=== PATIENT | female | born 1985 ===

== ENCOUNTER 2017-02-11 18:42 | Emergency (ER) | payer MEDICAID ==
[2017-02-11 19:26] LABS: HEMATOCRIT 41.2 % (34.0-47.0); MEAN CELL VOLUME 100.3 fl (81.0-99.0); MEAN CORPUSCULAR HEMOGLOBIN 33.5 pg (27.0-31.0); MEAN CORPUSCULAR HGB CONC 33.4 g/dL (33.0-37.0); RED CELL DISTRIBUTION WIDTH 14.1 % (11.5-14.5); WHITE BLOOD COUNT 5.8 K/uL (4.8-10.8)
[2017-02-11 19:44] LABS: ALB/GLOB RATIO 1.5 (1.0-2.1); ALKALINE PHOSPHATASE 76 U/L (38-126); ALT/SGPT 51 U/L (9-52); AST/SGOT 63 U/L (14-36); BILIRUBIN,TOTAL 0.5 mg/dl (0.2-1.3); BLOOD UREA NITROGEN 10 mg/dl (7-17); CALCIUM 9.1 mg/dL (8.4-10.2); CARBON DIOXIDE 27 mmol/L (22-30); CHLORIDE 109 mmol/L (98-107); GFR AFRICAN-AMERICAN > 60; GLUCOSE,RANDOM 90 mg/dL (65-105); POTASSIUM 4.6 MMOL/L (3.6-5.0); SODIUM 149 mmol/l (132-148)
[2017-02-11 20:13] LABS: ALCOHOL SERUM 392 mg/dl (0-10)
--- NOTE | 2017-02-11 22:32 | ED PDOC ---
HPI: Psych/Substance Abuse Time Seen by Provider: 02/11/17 18:57 Chief Complaint (Nursing): Alcohol Ingestion Chief Complaint (Provider): Brought in by EMS for alcohol abuse History Per: Patient, EMS Current Symptoms Are (Timing): Still Present Past Medical History Reviewed: Historical Data, Nursing Documentation, Vital Signs - Medical History PMH: Bipolar Disorder, HIV (is HIV(+) and is not on medication), Schizophrenia Denies: Depression - Family History Family History: States: No Known Family Hx - Immunization History Hx Tetanus Toxoid Vaccination: No Hx Influenza Vaccination: No Hx Pneumococcal Vaccination: No - Home Medications Home Medications: Ambulatory Orders Medication Instructions Recorded Unobtainable 05/21/13 - Allergies Allergies/Adverse Reactions: Allergies Allergy/AdvReac Type Severity Reaction Status Date / Time shellfish derived Allergy RASH Verified 02/11/17 18:46 Sulfa (Sulfonamide Allergy RASH Verified 02/11/17 18:46 Antibiotics) Review of Systems ROS Statement: Except As Marked, All Systems Reviewed And Found Negative Physical Exam - Reviewed Nursing Documentation Reviewed: Yes Vital Signs Reviewed: Yes - Physical Exam Appears: Positive for: Well, Non-toxic, No Acute Distress Head Exam: Positive for: ATRAUMATIC, NORMAL INSPECTION, NORMOCEPHALIC Skin: Positive for: Warm. Negative for: Normal Color (Linear scars left forearm ) Eye Exam: Positive for: Normal appearance ENT: Positive for: Normal ENT Inspection Neck: Positive for: Normal, Painless ROM Cardiovascular/Chest: Positive for: Regular Rate, Rhythm Respiratory: Positive for: Normal Breath Sounds. Negative for: Accessory Muscle Use Gastrointestinal/Abdominal: Positive for: Normal Exam, Bowel Sounds, Soft Back: Positive for: Normal Inspection Extremity: Positive for: Normal ROM Neurologic/Psych: Positive for: Alert. Negative for: Gait (Unsteady ) - Laboratory Results Result Diagrams: 02/11/17 19:22 02/11/17 19:22 Medical Decision Making Medical Decision Makin - Pt alert x 3, steady gait. Pt tolerated sandwich in ER. Pt states she has history of bipolar and does not take medication. Pt states she was on depakote once but she didn't like the way she felt on it. Pt states she does not like where she lives and is always anxious about the people who live in her building. Pt states she drinks because she doesn't like where she lives. Pt states she does not want to speak to psychiatrist. Pt denies SI/HI. Pt given several resources to make out-patient appointment. Pt presents with boyfriend. Disposition - Clinical Impression Clinical Impression: Alcohol abuse with intoxication - Patient ED Disposition Is Patient to be Admitted: No Counseled Patient/Family Regarding: Diagnosis, Need For Followup - Disposition Referrals: [facility] [Outside] [facility] [Outside] Disposition: Routine/Home Disposition Time: 22:29 Condition: GOOD Instructions: Abuse of Alcohol (ED)
[2017-02-11 22:34] VITALS: BP 122/80; PULSE 90; RESP 18; TEMP 98.7; O2SAT 99
== END 2017-02-11 22:36 | disposition home or self-care (01) ==
LOC: H.ER 18:42
DX: F10.129 Alcohol abuse with intoxication, unspecified (principal)